=== PATIENT | male | born 1985 | race Native Hawaiian/Other Pacific Islander ===

== ENCOUNTER 2022-12-11 16:14 | Emergency (ER) | payer SELFPAY ==
[2022-12-11 16:20] VITALS: BP 111/67; PULSE 52; RESP 18; TEMP 36.3; O2SAT 98; BMI 24.6
[2022-12-11] MEDS: lidocaine HCL 2 % MULTIDOSE 20 ML VIAL INJECTION (16:47)
--- NOTE | 2022-12-11 16:59 | ED.GENADULT ---
HPI - General Adult General Chief complaint: Laceration/Wound Stated complaint: L hand laceration Time Seen by Provider: 12/11/22 16:20 Source: patient Mode of arrival: ambulatory Limitations: no limitations History of Present Illness HPI narrative: 37-year-old male presenting to the ER today after he suffered a laceration to the left hand. He was at work when a small wooden beam fell off the ceiling and he put his hands up to protect his head. The beam lacerated his hand. He denies any other injury, did not hit his head. He has no difficulty with any movement of the hand or wrist. The hand does not hurt aside from where it was lacerated. He has no arm or wrist pain. He is unsure of his last tetanus shot. Related Data Previous Rx's Medication Instructions Recorded cephalexin 500 mg capsule 500 mg PO TID 7 days #21 caps 12/11/22 cephalexin 500 mg capsule 500 mg PO TID 7 days #21 caps 12/11/22 Allergies Allergy/AdvReac Type Severity Reaction Status Date / Time No Known Drug Allergies Allergy Verified 12/11/22 17:08 Review of Systems Status of ROS: Reports: 6 or more systems reviewed and unremarkable except as noted in History and below [facility] Social History Smoking Status: Never smoker Do you use any of these nicotine containing products: None Second hand tobacco smoke exposure: Yes How often do you have a drink containing alcohol: never How often do you have six or more drinks on one occasion: Never AUDIT-C Alcohol total score: 0 Non-prescribed substance use: denies use service: No Exam Narrative: Exam Narrative: Well-nourished well-developed patient in no acute distress. Alert and oriented. Answers questions appropriately. Mood and affect are appropriate. Thoughts are goal oriented and rational. No tangential or magical thinking noted. Patient speaks in full sentences without needing to catch their breath. HEENT: Normocephalic atraumatic. Pupils are equally round reactive to light. Extraocular muscles are intact. Conjunctivae are moist without any icterus noted. Moist mucous membranes. Extremities: Patient has a laceration right at the center of the palm of the left hand. The laceration extends through the dermis into the subcutaneous tissue but does not penetrate the subcutaneous tissue. There is no bone or tendons visible. He has full range of motion of all the fingers with flexion, extension, adduction and abduction. There is no injury noted to the wrist or forearm. Skin: Well perfused without any obvious rashes. Const: Vital Signs, click to edit/add: Vital Signs - 24 hr 12/11/22 16:20 Temperature 97.3 F L Pulse Rate [Pulse Oximeter] 52 L Respiratory Rate 18 Blood Pressure [Ri ght Upper Arm] 111/67 Pulse Oximetry 98 Oxygen Delivery Me thod Room Air Course Course Hospital Course: The hand was cleaned and then anesthetized with lidocaine. The wound was irrigated and explored. The wound was sutured with interrupted 3.0 Ethilon with great skin approximation and no complications. Vital Signs Vital signs: Initial Vital Signs Temperature 97.3 F L 12/11/22 16:20 Temperature Source Temporal Artery Scan 12/11/22 16:20 Pulse Rate 52 L 12/11/22 16:20 Pulse Rhythm Regular 12/11/22 16:20 Respiratory Rate 18 12/11/22 16:20 Blood Pressure 111/67 12/11/22 16:20 Blood Pressure Mean 81 12/11/22 16:20 Blood Pressure Position Supine 12/11/22 16:20 Pulse Oximetry 98 12/11/22 16:20 Oxygen Delivery Method Room Air 12/11/22 16:20 Vital Signs Temperature 97.3 F L 12/11/22 16:20 Pulse Rate 52 L 12/11/22 16:20 Respiratory Rate 18 12/11/22 16:20 Blood Pressure 111/67 12/11/22 16:20 Pulse Oximetry 98 12/11/22 16:20 Oxygen Delivery Method Room Air 12/11/22 16:20 Temperature 97.3 F L 12/11/22 16:20 Pulse Rate 52 L 12/11/22 16:20 Respiratory Rate 18 12/11/22 16:20 Blood Pressure 111/67 12/11/22 16:20 Pulse Oximetry 98 12/11/22 16:20 Oxygen Delivery Method Room Air 12/11/22 16:20 Medical Decision Making MDM Narrative Medical decision making narrative: 37-year-old male with a laceration to the palm of the hand. Given the location of the laceration and the mechanism I am concerned about the possibility of infection therefore we will treat the patient with Keflex. Tetanus shot was updated today as well. We discussed wound hygiene, signs symptoms of infection reasons for follow-up. Suture removal in 7-10 days with primary care. Discharge Plan Discharge Clinical Impression: Laceration Patient Disposition: Home, Self-Care Condition: Improved Additional Instructions: Keep hand clean and dry. Suture removal with his primary care doctor in 7-10 days. Take all antibiotics as prescribed. Okay to shower like you normally would but do not soak the hand-no swimming or doing dishes. Prescriptions: New cephalexin 500 mg capsule 500 mg PO TID 7 Days Qty: 21 0RF cephalexin 500 mg capsule 500 mg PO TID 7 Days Qty: 21 0RF Stand Alone Forms: [employer] Info Instructions
--- NOTE | 2022-12-11 17:31 | ED.NURSE ---
This nurse gave Adacel Lot #[id number], Exp. [id number], into pt left deltoid, per pt request. Pt answered no to [place], no to seizures from previous injections and no to any egg allergies or medication allergies.
== END 2022-12-11 17:43 | disposition home or self-care (01) ==
LOC: ED 17:39
PROVIDERS: Emergency Provider Family Medicine
DX: S61.412A Laceration without foreign body of left hand, initial encounter (principal); W20.8XXA Other cause of strike by thrown, projected or falling object, initial encounter; Y99.0 Civilian activity done for income or pay
CPT/HCPCS: 12001; 90471; 99284